=== PATIENT | male | born 1975 | race Asian ===

== ENCOUNTER 2022-02-07 06:35 | Observation (INO) | payer OTHER ==
[2022-02-05 12:29] LABS: BASOPHILS % 0.7 % (0.0-1.0); EOSINOPHILS # (AUTO) 0.1 (0.0-0.4); HEMOGLOBIN 15.9 g/dL (14.0-18.0); LYMPHOCYTES # (AUTO) 1.6 (1.0-3.2); LYMPHOCYTES % 26.4 % (18.0-39.1); MEAN CORPUSCULAR HEMOGLOBIN 30.3 pg (28-32); MEAN CORPUSCULAR HGB CONC 34.6 g/dL (31-35); MEAN CORPUSCULAR VOLUME 87.6 fL (81-99); MONOCYTES # (AUTO) 0.5 (0.2-0.8); MONOCYTES % 8.7 % (4.4-11.3); NEUTROPHILS # (AUTO) 3.8 (2.1-6.9); NEUTROPHILS % 61.9 % (38.7-80.0); PLATELET COUNT 198 x10e3/uL (140-360); RED BLOOD COUNT 5.25 x10e6/uL (4.3-5.7); RED CELL DISTRIBUTION WIDTH 11.5 % (11.7-14.4)
[2022-02-05 12:49] LABS: INR 0.84; PROTHROMBIN TIME 12.3 seconds (11.9-14.5)
[2022-02-05 12:53] LABS: ANION GAP 17.2 mmol/L (8-16); CALCIUM 9.5 mg/dL (8.4-10.2); CREATININE, SERUM 0.74 mg/dL (0.72-1.25); POTASSIUM 4.2 mmol/L (3.5-5.1)
[2022-02-07] VITALS (7 sets, daily range): BP systolic 109–126; BP diastolic 72–76
[~2022-02-07] VITALS: Ht 180.3 cm; Wt 79.4 kg
[~2022-02-07 06:35] MED LIST: BARACLUDE0.5 MG
[2022-02-07] MEDS ORDERED: Vancomycin IV 1 GM VIAL ONE (07:18)
[2022-02-07] MEDS ORDERED: LIDOCAINE 2% /EPINEPHRINE 20 ML SDV INJ ONE (07:18)
[2022-02-07] MEDS ORDERED: THROMBIN FOR SOLN 5,000 UNIT VIAL ONE (07:18)
[2022-02-07] MEDS ORDERED: HYDROCODON-ACE1 EA12 PO (10:41)
[2022-02-07] MEDS ORDERED: CARISOPRODOL 350 MG TAB PO PRN (10:45)
[2022-02-07] MEDS ORDERED: ZOLPIDEM TARTRATE 5 MG TAB PO PRN (10:45)
[2022-02-07] MEDS ORDERED: ACETAMINOPHEN 325 MG TAB PO PRN (10:45)
[2022-02-07] MEDS ORDERED: LACTATED RINGER'S 1,000 ML IV SCH (10:45)
[2022-02-07] MEDS ORDERED: PROMETHAZINE HCL (IM) 25 MG/ML VIAL IM PRN (10:45)
[2022-02-07] MEDS ORDERED: MAGNESIUM/ALUMINUM/SIMETHICONE 30 ML UDC PO PRN (10:45)
[2022-02-07] MEDS ORDERED: CEPACOL SORE THROAT LOZENGES PO PRN (10:45)
[2022-02-07] MEDS ORDERED: OXYCODONE/ACETAMINOPHEN 5-325 1 EACH TABLET PO PRN (10:45)
[2022-02-07] MEDS ORDERED: HYDROMORPHONE 2MG/ML 2 MG/ML ML IV PRN (10:45)
[2022-02-07] MEDS ORDERED: ONDANSETRON HCL INJ 2MG/ML 2ML 2 MG/ML VIAL IV PRN (10:45)
[2022-02-07] MEDS ORDERED: MORPHINE SULFATE 5 MG/ML VIAL IM PRN (10:45)
[2022-02-07] MEDS ORDERED: FENTANYL CITRATE/PF 100MCG/2 ML INJ ONE ×2 (11:21→13:15)
[2022-02-07] MEDS ORDERED: MIDAZOLAM HCL 2 MG/2 ML VIAL ONE (13:15)
[2022-02-07] MEDS ORDERED: SODIUM CHLORIDE 0.9% 100 ML ONE (15:51)
[2022-02-07] MEDS ORDERED: SEVOFLURANE INHAL SOLN 250 ML PEN BTL ONE (17:58)
[2022-02-07] MEDS ORDERED: ROCURONIUM BROMIDE 10 MG/ML 5ML VIAL IV ONE (17:58)
[2022-02-07] MEDS ORDERED: ONDANSETRON HCL INJ 2MG/ML 2ML 2 MG/ML VIAL ONE (17:58)
[2022-02-07] MEDS ORDERED: PROPOFOL IV EMULSION 10 MG/ML 20 ML VIAL ONE (17:58)
[2022-02-07] MEDS ORDERED: SUGAMMADEX SODIUM 200 MG/2 ML VIAL IV ONE (17:58)
[2022-02-07] MEDS ORDERED: LIDOCAINE HCL (LTA) 4 ML SOLN ONE (17:58)
[2022-02-07] MEDS ORDERED: POVIDONE IODINE 0.05% 0.05 % ML PO ONE (17:58)
[2022-02-07] MEDS ORDERED: DEXAMETHASONE SOD PHOS INJ 4 MG/ML SDV ONE (17:58)
[2022-02-07] MEDS ORDERED: KETOROLAC TROMETHAMINE 30 MG/ML VIAL ONE (17:58)
[2022-02-07] MEDS ORDERED: ACETAMINOPHEN 1000 MG/100 ML IV ONE (17:58)
[2022-02-07] MEDS ORDERED: LIDOCAINE HCL 2% LOCAL INJ 5 ML SDV VIAL INJ ONE (17:58)
[2022-02-08 04:31] VITALS: BP 106/66
[2022-02-08 07:54] VITALS: BP 121/72
[2022-02-08 08:27] VITALS: BP 121/72
== END 2022-02-08 10:30 | disposition home or self-care (01) ==
LOC: OR 06:35 → PACU V 10:40 → MED/SURG 13:08
PROVIDERS: ADMIT Neurological Surgery; ATTEND Neurological Surgery
DX: M51.17 Intervertebral disc disorders with radiculopathy, lumbosacral region (principal); Z01.810 Encounter for preprocedural cardiovascular examination; Z01.812 Encounter for preprocedural laboratory examination; Z01.818 Encounter for other preprocedural examination; Z87.891 Personal history of nicotine dependence; Z86.19 Personal history of other infectious and parasitic diseases; Z20.822 Contact with and (suspected) exposure to COVID-19
CPT/HCPCS: 0223U; 36415; 63047; 71046; 72020; 80048; 85025; 85610; 85730; 86850; 86900; 88304; 93005; 99251; G0378 ×2; J0131; J0690 ×2; J1100; J1885; J2001 ×2; J2250; J2405; J2704; J3010; J3370; J7050